=== PATIENT | male | born 1960 | race Caucasian/White ===

== ENCOUNTER 2021-02-15 03:01 | Inpatient (IN) | payer OTHER ==
[~2021-02-15] VITALS: Ht 177.8 cm; Wt 117.9 kg
--- NOTE | ~2021-02-15 | EMS ---
[address] [address] EMS Patient Care Report Name: EDIL RODRÍGUEZ Room #: 355-P ADM IN M.R.#: [id number] Admission: 02/15/21 Attend Phys: Argelia Mcnulty MD Discharge: Date of : 58 Report #: [id number] THIS REPORT FOR: //name// Report Transmitted: 02/17/2021 15:08 EMS Care Summary [place], [place]/[facility] Incident [id number] @ 02/15/2021 02:36 Incident Location [address], [place] [address] Patient EDIL RODRÍGUEZ Male, 60 Years 1960 Patient Address [address] [address] Patient History None Reported, Patient Allergies No known allergies, Patient Medications None Reported, Chief Complaint SOA Disposition Transported No Lights/[place] Dispatch Reason Sick Person Transported To [facility] Narrative M41 DISPATCHED TO [facility]. [facility] AND WAS MET OUTSIDE BY THE PT. THE PT STATES THAT HE HAS FELT SOA SINCE YESTERDAY. THE PT DENIES HAVING ANY PAIN. PT STATES THAT HE HAS NO [address] [address] EMS Patient Care Report Name: EDIL RODRÍGUEZ Room #: 355-P ADM IN M.R.#: [id number] Admission: 02/15/21 Attend Phys: Argelia Mcnulty MD Discharge: Date of : 58 Report #: [id number] OTHER COMPLAINTS OTHER THAN FEELING SOA. THE PT STATES THAT HE DOES NOT HAVE ANY MED HX, ALLERGIES, OR MEDS. PT WAS MOVED TO THE COT. VITALS OBTAINED. BGA OBTAINED. PT PLACED ON 4 LPM NC O2. PTS O2 SATURATIONS IMPROVED. M[address] [facility]. EN ROUTE PT REMAINED STABLE. REPORT GIVEN TO RN [facility], SIGNATURES OBTAINED. TRANSFER OF CARE TOOK PLACE. M41 IN SERVICE. MATEUS WATSON [employer]PER[employer] [facility] Initial Vitals @02:49P: 104,BP: 141/86, @02:43P: 105,BP: 158/103,CO: 4,SpO2: 91, @02:41P: 109,R: 24,BP: 174/116,Pain: 0/10,GCS: 15,Glucose: 123,CO: 3,SpO2: 91,Revised Trauma: 12, @02:48P: 103,R: 24,BP: 74/33,Pain: 0/10,GCS: 15,CO: 7,SpO2: 96,Revised Trauma: 10, Assessments @02:39MENTAL:Time Oriented,Event Oriented,Place Oriented,Person Oriented,SKIN:HEENT:Neck/Airway: No Abnormalities,LUNG SOUNDS:General: No Abnormalities,ABDOMEN:General: No Abnormalities,PELVIS//GI:No Abnormalities,EXTREMITIES:Capillary Refill: Right Upper: < 2 Sec,Left Arm: No Abnormalities,Right Arm: No Abnormalities,Left Leg: No Abnormalities,Right Leg: No Abnormalities,PULSE:Radial: 2+ Normal,NEURO:No Abnormalities, Impression Shortness of breath Procedures @02:39ALS AssessmentResponse: UnchangedSucceeded Timeline 02:31,Call Received 02:31,Dispatch Notified 02:36,Dispatched 02:37,En Route 02:38,On Scene [facility] [address] [place] [address] EMS Patient Care Report Name: EDIL RODRÍGUEZ Room #: 355-P ADM IN M.R.#: [id number] Admission: 02/15/21 Attend Phys: Argelia Mcnulty MD Discharge: Date of : 58 Report #: [id number] 02:39,At Patient 02:39,ALS Assessment,Response: UnchangedSucceeded, 02:41,BP: 174/116 M,PULSE: 109,RR: 24 R,SPO2: 91 Ox,ETCO2: ,B,PAIN: 0,GCS: 15, 02:43,BP: 158/103 M,PULSE: 105,RR: R,SPO2: 91 Ox,ETCO2: ,BG: ,PAIN: ,GCS: , 02:46,Depart Scene 02:48,BP: 74/33 M,PULSE: 103,RR: 24 R,SPO2: 96 Ox,ETCO2: ,BG: ,PAIN: 0,GCS: 15, 02:49,BP: 141/86 M,PULSE: 104,RR: R,SPO2: Ox,ETCO2: ,BG: ,PAIN: ,GCS: , 03:11,At Destination 03:11,Call Closed Disclaimer v1.1 Copyright 2020 [employer] This EMS Care Summary contains data elements from the applicable legal record (which may be displayed differently). It is designed to provide pertinent information for the following purposes: continuity of care, clinical quality, and state data reporting. The complete legal record is available to ED staff and administrators of the receiving hospital in ES's Patient Tracker. All data is provided "as is."
[2021-02-15 03:04] VITALS: BP 159/95
[2021-02-15 03:20] LABS: ABSOLUTE NEUTROPHILS 6.7 thou/uL (1.4-8.2); BASOPHILS 0.7 % (0.0-2.0); EOSINOPHILS 0.1 % (0.0-3.0); HEMATOCRIT 50.2 % (42.0-52.0); HEMOGLOBIN 17.3 gm/dL (14.0-18.0); LYMPHOCYTES 17.3 % (24.0-44.0); MCH 31.1 pg (26.0-34.0); MCHC 34.5 g/dL (28.0-37.0); MONOCYTES 19.1 % (1.0-8.0); PLATELET COUNT 223 thou/uL (150-400); POLYS 62.8 % (36.0-66.0); RBC 5.58 mil/uL (4.50-6.00); RDW 14.8 % (10.5-14.5); WBC 10.7 thou/uL (4.0-11.0)
[2021-02-15 03:46] LABS: ANION GAP 9 mmol/L (7-16); BUN 10 mg/dL (7-18); CALCIUM 8.4 mg/dL (8.5-10.1); CHLORIDE 99 mmol/L (98-107); CO2 26 mmol/L (21-32); CREATININE 1.1 mg/dL (0.7-1.3); GLUCOSE 156 mg/dL (74-106); SODIUM 134 mmol/L (136-145)
[2021-02-15 03:53] LABS: ALBUMIN 3.4 g/dL (3.4-5.0); SGOT 45 U/L (15-37); SGPT 76 U/L (30-65); TOTAL BILIRUBIN 0.4 mg/dL (0.2-1.0); TROPONIN-I <0.06 ng/mL (<0.06)
[2021-02-15 07:23] LABS: CHOLESTEROL 143 mg/dL (<200); HDL CHOLESTEROL 29 mg/dL (>40); LDL CHOLESTEROL 95 mg/dL (<100); TC:HDL 4.9 Ratio (Not establshd); TRIGLYCERIDE 95 mg/dL (<150); VLDL 19 mg/dL (<40)
[2021-02-15 07:45] LABS: URINE BILIRUBIN NEGATIVE (Negative); URINE BLOOD NEGATIVE (Negative); URINE CLARITY CLEAR; URINE COLOR YELLOW; URINE GLUCOSE-RANDOM* NEGATIVE (Negative); URINE KETONES NEGATIVE (Negative); URINE LEUKOCYTES-REFLEX NEGATIVE (Negative); URINE NITRITE-REFLEX NEGATIVE (Negative); URINE PROTEIN (DIPSTICK) TRACE (Negative); URINE SPECIFIC GRAVITY 1.015 (1.005-1.035)
--- NOTE | 2021-02-15 09:23 | EKG ---
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1960 Requested By: Adolph Gentile Order Number: [id number] MD: Fazal Watters Measurements Intervals [place] Rate: 100 P: 52 [place]: 175 QRS: -30 QRSD: 107 T: 83 QT: 351 QTc: 453 Interpretive Statements Sinus tachycardia Probable left atrial enlargement Inferior infarct, old Probable anteroseptal infarct, old No previous ECG available for comparison Electronically Signed On 02-15-2021 9:22:55 CDT by Fazal Watters [email or web address] <ELECTRONICALLY SIGNED> By: Fazal Watters MD, [facility] 02/15/21 0922 0324 [id number] Fazal Watters MD, FACC /EPI
[2021-02-15 15:00] VITALS: BP 151/90
[2021-02-15 17:24] VITALS: BP 155/69
[2021-02-15 19:10] VITALS: BP 175/103
[2021-02-15 23:49] VITALS: BP 152/99
[2021-02-16 01:05] LABS: GLYCOHEMOGLOBIN (HGB A1C) 9.5 % (4.8-5.6)
[2021-02-16 06:19] VITALS: BP 151/98
[2021-02-16 07:07] LABS: HEMATOCRIT 52.4 % (42.0-52.0); HEMOGLOBIN 17.7 gm/dL (14.0-18.0); MCHC 33.8 g/dL (28.0-37.0); MCV 91.8 fL (80.0-100.0); RBC 5.71 mil/uL (4.50-6.00); RDW 15.1 % (10.5-14.5)
[2021-02-16 07:19] LABS: CALCIUM 8.5 mg/dL (8.5-10.1); CREATININE 1.1 mg/dL (0.7-1.3); POTASSIUM 4.1 mmol/L (3.5-5.1); TOTAL BILIRUBIN 0.2 mg/dL (0.2-1.0); TOTAL PROTEIN 7.7 g/dL (6.4-8.2)
[2021-02-16 07:42] VITALS: BP 159/91
[2021-02-16 08:40] LABS: DIRECT BILIRUBIN < 0.1 mg/dL (<0.1-0.2); PHOSPHORUS 3.8 mg/dL (2.5-4.9)
[2021-02-16 15:32] VITALS: BP 148/99
[2021-02-16 19:49] VITALS: BP 139/76
[2021-02-17 04:02] VITALS: BP 139/78
[2021-02-17 04:37] LABS: ABSOLUTE NEUTROPHILS 9.4 thou/uL (1.4-8.2); BASOPHILS 0.3 % (0.0-2.0); HEMATOCRIT 45.8 % (42.0-52.0); LYMPHOCYTES 13.6 % (24.0-44.0); MCH 30.7 pg (26.0-34.0); MCHC 33.8 g/dL (28.0-37.0); MCV 90.6 fL (80.0-100.0); MONOCYTES 6.8 % (1.0-8.0); PLATELET COUNT 233 thou/uL (150-400); POLYS 79.3 % (36.0-66.0); RBC 5.05 mil/uL (4.50-6.00); RDW 14.6 % (10.5-14.5); WBC 11.8 thou/uL (4.0-11.0)
[2021-02-17 04:44] LABS: HEMOGLOBIN 15.5 gm/dL (14.0-18.0)
[2021-02-17 05:10] LABS: ALBUMIN 2.8 g/dL (3.4-5.0); ANION GAP 11 mmol/L (7-16); BUN 17 mg/dL (7-18); CALCIUM 7.6 mg/dL (8.5-10.1); CHLORIDE 104 mmol/L (98-107); CO2 24 mmol/L (21-32); DIRECT BILIRUBIN < 0.1 mg/dL (<0.1-0.2); GLUCOSE 249 mg/dL (74-106); PHOSPHORUS 2.9 mg/dL (2.5-4.9); POTASSIUM 3.9 mmol/L (3.5-5.1); SGOT 20 U/L (15-37); SGPT 43 U/L (30-65); SODIUM 139 mmol/L (136-145); TOTAL BILIRUBIN 0.2 mg/dL (0.2-1.0); TOTAL PROTEIN 6.7 g/dL (6.4-8.2)
[2021-02-17 07:13] VITALS: BP 168/117
--- NOTE | 2021-02-17 09:04 | HC ---
[facility] [place] [address] CONSULTATION Name: EDIL RODRÍGUEZ Room #: 355-P ADM IN M.R.#: [id number] Admission: 02/15/21 Attend Phys: Argelia Mcnulty MD Discharge: Date of : 58 Report #: [id number] THIS REPORT FOR: cc: FAM - Family physician unknown FAM - Family physician unknown Ibrahima Sanford MD ~ DATE OF SERVICE: 02/16/2021 INFECTIOUS DISEASE CONSULTATION ATTENDING PHYSICIAN: Dr. Mdeina. REASON FOR EVALUATION: COVID-19 infection, complicated by pneumonitis and respiratory failure. HISTORY OF PRESENT ILLNESS: Chart reviewed and the patient examined. The patient is a 60-year-old smoker who over the course of the last few days prior to admission had developed increasing dyspnea, had experienced some degree of cough with mild sputum production, is not clear of any fevers. He did have some abdominal discomfort and diminished p.o. intake. He was evaluated in the Emergency Room, found to have a positive COVID test. Glucose was 156. Chest x-ray did show some mild changes in right base. Urinalysis was otherwise unremarkable. Ultrasound shows cholelithiasis, question of gallbladder wall thickening, pericholecystic fluid. Procalcitonin was less than 0.05. He was given fluids, initiated on therapy with azithromycin, ceftriaxone, remdesivir as well as corticosteroids. ALLERGIES: None known. MEDICATIONS: Currently include albuterol, nicotine patch, famotidine, enoxaparin, guaifenesin, dexamethasone, ondansetron, remdesivir, azithromycin, ceftriaxone, and p.r.n. analgesics. PAST MEDICAL HISTORY: Denies any. SOCIAL HISTORY: Smokes cigarettes, 40-mrss-zwre history. Occasional ethanol, no illicit drug use. FAMILY HISTORY: Noncontributory. REVIEW OF SYSTEMS: Otherwise limited. PHYSICAL EXAMINATION: GENERAL: He appears somewhat chronically ill, undernourished. He is pleasant, cooperative, mild to moderate distress. VITAL SIGNS: Temperature 97.7, pulse 84, respirations 16, blood pressure [address] [address] CONSULTATION Name: EDIL RODRÍGUEZ Room #: 355-[facility] IN M.R.#: [id number] Admission: 02/15/21 Attend Phys: Argelia Mcnulty MD Discharge: Date of : 58 Report #: [id number] 159/91. SKIN: Warm, dry, no rashes. HEENT: Normocephalic. Extraocular muscles intact. Neck is supple. Nasal cannula in place, oxygen 2 liters per supplement. LUNGS: Few scattered coarse breath sounds, somewhat distant. HEART: Regular. I do not appreciate any murmur. ABDOMEN: Obese, somewhat firm, nontender. EXTREMITIES: No cyanosis. GENITOURINARY AND RECTAL: Deferred. LABORATORY DATA: Electrolytes most recently, sodium 137, potassium 4.1, chloride 102, bicarbonate 29, anion gap of 6, BUN and creatinine 15 and 1.1, glucose of 174. LFTs unremarkable. Albumin 3.0, total protein of 7.7. CBC: White count of 9.0, H and H 17.7 and 52.4, platelets of 234. Hemoglobin A1c of 9.5. Procalcitonin less than 0.05. CRP of 13.3. Ultrasound as noted above. Urinalysis unremarkable. Lipid profile: Cholesterol 143. Chest x-ray, question of developing pneumonitis. COVID testing was positive. CBC: White count 10.7, H and H 17.3 and 50.2 on admission, 223 platelets. ASSESSMENT AND PLAN: COVID-19 infection, complicated by pneumonitis, respiratory failure, likely new diagnosis of diabetes mellitus and he has had no medical care in a number of years. We will continue combination therapy. He notes he does feel better. We will add vitamins and ivermectin as well. Consider monoclonal antibody if would worsen. Continue oxygen support. Will need diabetic education. Supportive care. <ELECTRONICALLY SIGNED> By: Ibrahima Sanford MD 02/17/21 0904 0820 2135 Ibrahima Sanford MD /nt
[2021-02-17 15:34] VITALS: BP 201/127
[2021-02-17 16:30] VITALS: BP 193/111
[2021-02-17 19:57] VITALS: BP 181/107
[2021-02-18] VITALS (7 sets, daily range): BP systolic 148–186; BP diastolic 89–119
[2021-02-18 03:18] LABS: HEMATOCRIT 51.7 % (42.0-52.0); MCH 30.7 pg (26.0-34.0); MCV 90.4 fL (80.0-100.0); RBC 5.72 mil/uL (4.50-6.00); RDW 14.9 % (10.5-14.5); WBC 10.3 thou/uL (4.0-11.0)
[2021-02-18 03:29] LABS: ALBUMIN 3.5 g/dL (3.4-5.0); CALCIUM 8.7 mg/dL (8.5-10.1); CREATININE 0.9 mg/dL (0.7-1.3); DIRECT BILIRUBIN 0.2 mg/dL (<0.1-0.2); HEMOGLOBIN 17.6 gm/dL (14.0-18.0); PHOSPHORUS 2.8 mg/dL (2.5-4.9); POTASSIUM 3.5 mmol/L (3.5-5.1); TOTAL BILIRUBIN 0.5 mg/dL (0.2-1.0)
[2021-02-18 15:08] LABS: HAV IgM AB (ANTI-HAV IgM) Negative (Negative); HEPATITIS B SURFACE AG Negative (Negative); HEPATITIS C VIRUS AB >11.0 (0.0-0.9)
[2021-02-19 03:20] LABS: ALBUMIN 3.5 g/dL (3.4-5.0); CALCIUM 8.5 mg/dL (8.5-10.1); DIRECT BILIRUBIN 0.2 mg/dL (<0.1-0.2); PHOSPHORUS 3.1 mg/dL (2.5-4.9); TOTAL BILIRUBIN 0.5 mg/dL (0.2-1.0); TOTAL PROTEIN 7.9 g/dL (6.4-8.2)
[2021-02-19 05:10] VITALS: BP 139/79
[2021-02-19 07:51] VITALS: BP 159/87
[2021-02-19] MEDS ORDERED: ELIQUIS2.5 MG PO (13:04)
[2021-02-19] MEDS ORDERED: VITAMIN D325 MC2 PO (13:04)
[2021-02-19] MEDS ORDERED: NORVASC10 MG PO (13:04)
[2021-02-19] MEDS ORDERED: LOPRESSOR50 PO (13:04)
[2021-02-19] MEDS ORDERED: MUCINEX600 MG PO (13:04)
[2021-02-19] MEDS ORDERED: PREDNISONE 10 M10 MG PO (13:04)
[2021-02-19] MEDS ORDERED: PEPCID20 MG PO (13:04)
[2021-02-19] MEDS ORDERED: ZINC SULFATE50 MG PO (13:04)
[2021-02-19] MEDS ORDERED: ACEROLA C500 MG PO (13:04)
[2021-02-19] MEDS ORDERED: VENTOLIN HFA 1818 GM INH (13:04)
[2021-02-19] MEDS ORDERED: CEFDINIR300 MG PO (13:04)
[2021-02-19 13:13] VITALS: BP 159/87
[2021-02-19] MEDS ORDERED: OTHER MISCELL (14:16)
[2021-02-19] MEDS ORDERED: ATIVAN0.5 M1 PO (14:16)
[2021-02-19] MEDS ORDERED: METFORMIN HCL500 M3 PO (14:16)
[2021-02-19] MEDS ORDERED: ASA81BEC PO (14:36)
[2021-02-19 15:52] VITALS: BP 159/87
== END 2021-02-19 15:43 | disposition home or self-care (01) | DRG 177 ==
LOC: ER 03:01 → 3W 05:45 → EROBS 05:45 → 3W 17:53
PROVIDERS: Hospitalist; Nurse Practitioner Family; Student in an Organized Health Care Education/Training Program; ADMIT Internal Medicine; ATTEND Internal Medicine
PROC: XW033E5 Introduction of Remdesivir Anti-infective into Peripheral Vein, Percutaneous Approach, New Technology Group 5 (ICD-10-PCS; principal; 2021-02-15)
DX: U07.1 COVID-19 (principal); J12.82 Pneumonia due to coronavirus disease 2019; J96.01 Acute respiratory failure with hypoxia; F17.210 Nicotine dependence, cigarettes, uncomplicated; J44.9 Chronic obstructive pulmonary disease, unspecified; E11.9 Type 2 diabetes mellitus without complications; E66.9 Obesity, unspecified; Z71.6 Tobacco abuse counseling; Z68.38 Body mass index [BMI] 38.0-38.9, adult
CPT/HCPCS: 10080; 10879

== ENCOUNTER 2021-05-14 06:27 | Inpatient (IN) | payer OTHER ==
[~2021-05-14] VITALS: Ht 177.8 cm; Wt 121.6 kg
--- NOTE | ~2021-05-14 | EMS ---
[place] [address] EMS Patient Care Report Name: EDIL RODRÍGUEZ Room #: 207-P ADM IN M.R.#: [id number] Admission: 05/14/21 Attend Phys: Annie Rush Discharge: Date of : 58 Report #: [id number] THIS REPORT FOR: //name// Report Transmitted: 05/18/2021 14:35 EMS Care Summary [place], [place]/[facility] Incident [id number] @ 05/14/2021 05:46 Incident Location [address] [place] [address] Patient VIRGIL GARCIA Male, 60 Years 1960 Patient Address [address] [place] [address] Patient History None Reported, Patient Allergies No known allergies, Patient Medications None Reported, Chief Complaint COUGH, FEVER, AND WEAKNESS Disposition Transported No Lights/[place] Dispatch Reason Breathing Problem Transported To [facility] Narrative UPON ARRIVAL WE FOUND OUR 60 YEAR OLD MALE PATIENT LAYING ON A COUCH IN THE FRONT ROOM OF A RESIDENCE COMPLAINING OF A COUGH, FEVER, CHILLS, AND WEAKNESS X 2 DAYS. THE PATIENT STATES THAT HE HAS NOT RECEIVED A COVID 19 VACCINE, BUT HE DENIES ANY KNOWN COVID 19 EXPOSURE. THE PATIENT REQUESTS TRANSPORT TO [facility] [place] [address] EMS Patient Care Report Name: EDIL RODRÍGUEZ Room #: 207-P ADM IN M.R.#: [id number] Admission: 05/14/21 Attend Phys: Annie Rush Discharge: Date of : 58 Report #: [id number] EVALUATION. Initial Vitals @05:55P: 130,R: 30,BP: 186/112,Pain: 0/10,GCS: 15,Temp: 102.3F,SpO2: 87,Revised Trauma: 11,AL Suspected: false @06:16P: 130,R: 24,BP: 180/100,Pain: 0/10,GCS: 15,SpO2: 90,Revised Trauma: 12, Assessments @05:52MENTAL:Time Oriented,Event Oriented,Place Oriented,Person Oriented,SKIN:Hot,HEENT:Eyes: Left Pupil: 4-mm,Eyes: Right Pupil: 4-mm,Head/Face: No Abnormalities,Neck/Airway: No Abnormalities,LUNG SOUNDS:General: No Abnormalities,ABDOMEN:General: No Abnormalities,PELVIS//GI:Incontinence,EXTREMITIES:Left Arm: No Abnormalities,Right Arm: No Abnormalities,Left Leg: No Abnormalities,Right Leg: No Abnormalities,PULSE:Radial: 2+ Normal,NEURO:No Abnormalities, Impression Cough Procedures @05:52 ALS Assessment Response: UnchangedSucceeded @05:54 Oxygen FlowRate: 3 Device: Nasal Cannula (NC) Response: UnchangedSucceeded @05:55 3-Lead ECG Response: UnchangedSucceeded Timeline 05:45,Call Received 05:45,Dispatch Notified 05:46,Dispatched 05:48,En Route 05:51,On Scene 05:52,At Patient 05:52,ALS Assessment,Response: UnchangedSucceeded, 05:54,Oxygen FlowRate: 3 Device: Nasal Cannula (NC) Response: UnchangedSucceeded, 05:55,3-Lead ECG,Response: UnchangedSucceeded, 05:55,BP: 186/112 M,PULSE: 130,RR: 30 R,SPO2: 87 Ox,ETCO2: ,BG: ,PAIN: 0,GCS: 15, 05:58,Depart Scene 06:15,At Destination 06:16,BP: 180/100 M,PULSE: 130,RR: 24 R,SPO2: 90 Ox,ETCO2: ,BG: ,PAIN: 0,GCS: 15, 06:35,Call Closed Disclaimer [facility] [address] [place] [address] EMS Patient Care Report Name: EDIL RODRÍGUEZ Room #: 207-P ADM IN M.R.#: [id number] Admission: 05/14/21 Attend Phys: Annie uRsh Discharge: Date of : 58 Report #: [id number] v1.1 Copyright 2020 [employer] This EMS Care Summary contains data elements from the applicable legal record (which may be displayed differently). It is designed to provide pertinent information for the following purposes: continuity of care, clinical quality, and state data reporting. The complete legal record is available to ED staff and administrators of the receiving hospital in [employer]'s Patient Tracker. All data is provided "as is."
[~2021-05-14 06:27] MED LIST: ACEROLA C500 MG PO; ASA81BEC PO; ATIVAN0.5 M1 PO; CEFDINIR300 MG PO; ELIQUIS2.5 MG PO; LOPRESSOR50 PO; METFORMIN HCL500 M3 PO; MUCINEX600 MG PO; NORVASC10 MG PO; OTHER MISCELL; PEPCID20 MG PO; PREDNISONE 10 M10 MG PO; VENTOLIN HFA 1818 GM INH; VITAMIN D325 MC2 PO; ZINC SULFATE50 MG PO
[2021-05-14 06:29] VITALS: BP 193/112
[2021-05-14 06:48] LABS: HEMATOCRIT 51.9 % (42.0-52.0); HEMOGLOBIN 17.6 gm/dL (14.0-18.0); MCH 30.4 pg (26.0-34.0); MCHC 33.9 g/dL (28.0-37.0); MCV 89.7 fL (80.0-100.0); PLATELET COUNT 293 thou/uL (150-400); RBC 5.78 mil/uL (4.50-6.00); RDW 14.2 % (10.5-14.5); WBC 35.8 thou/uL (4.0-11.0)
[2021-05-14 07:08] LABS: CALCIUM 9.1 mg/dL (8.5-10.1); CREATININE 1.4 mg/dL (0.7-1.3)
[2021-05-14 07:13] LABS: BE(vivo) 3.5 mmol/L (-2 to +3); PCO2 37.7 mmHg (35.0-45.0); pH 7.473 (7.360-7.450); sO2 90.6 % (92.0-98.0)
[2021-05-14 07:14] LABS: PO2 54.9 mmHg (80.0-100.0)
[2021-05-14 07:14] LABS: POTASSIUM 4.8 mmol/L (3.5-5.1)
[2021-05-14 07:18] LABS: ALBUMIN 3.5 g/dL (3.4-5.0); TOTAL BILIRUBIN 0.8 mg/dL (0.2-1.0); TOTAL PROTEIN 8.7 g/dL (6.4-8.2)
[2021-05-14 07:58] LABS: URINE BILIRUBIN NEGATIVE (Negative); URINE BLOOD 1+ (Negative); URINE CLARITY CLEAR; URINE COLOR YELLOW; URINE GLUCOSE-RANDOM* 2+ (Negative); URINE KETONES NEGATIVE (Negative); URINE LEUKOCYTES-REFLEX NEGATIVE (Negative); URINE NITRITE-REFLEX NEGATIVE (Negative); URINE PROTEIN (DIPSTICK) 2+ (Negative); URINE SPECIFIC GRAVITY 1.025 (1.005-1.035)
[2021-05-14 08:21] LABS: CASTS None Seen /LPF (None Seen); SQUAMOUS 0-3 Few /LPF (0-3)
[2021-05-14 08:22] LABS: BACTERIA-REFLEX None Seen /HPF (None Seen); CRYSTALS None Seen /LPF (None Seen); URINE RBC 1-2 Rare /HPF (NONE SEEN); URINE WBC-REFLEX 0-5 Rare /HPF (0-5)
[2021-05-14 09:41] VITALS: BP 159/96
[2021-05-14 09:58] LABS: ABSOLUTE NEUTROPHILS 31.9 thou/uL (1.4-8.2)
[2021-05-14 10:47] LABS: AMP/METHAMP POSITIVE (Negative); BARBITURATES Negative (Negative); BENZODIAZEPINES Negative (Negative); COCAINE Negative (Negative); METHADONE Negative (Negative); OPIATES Negative (Negative); PCP Negative (Negative)
[2021-05-14 10:47] LABS: WBC 33.6 thou/uL (4.0-11.0)
[2021-05-14 11:50] VITALS: BP 150/86
[2021-05-14 13:16] VITALS: BP 157/86
--- NOTE | 2021-05-14 15:46 | EKG ---
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1960 Requested By: Destiney Min Order Number: [id number] MD: Fazal Watters Measurements Intervals [place] Rate: 114 P: 32 [place]: 172 QRS: -11 QRSD: 109 T: 74 QT: 343 QTc: 473 Interpretive Statements Sinus tachycardia Borderline low voltage, extremity leads Abnormal R-wave progression, late transition Baseline wander in lead(s) II,aVR,aVF,V1,V2,V3,V4,V5,V6 Compared to ECG 02/15/2021 03:24:59 Myocardial infarct finding no longer present Electronically Signed On 05-14-2021 15:46:05 CDT by Fazal Watters [email or web address] <ELECTRONICALLY SIGNED> By: Fazal Watters MD, FACC 05/14/21 1546 Fazal Watters MD, [facility] /EPI
--- NOTE | 2021-05-14 16:52 | NUR ---
Received pt from ED pt does not want to answer question for admission and requests to be left alone. Critical labs called to the MD orders given, Pt is impulsive wanting to get out of bed and have some water. Informed pt he needs to be npo and to await MD orders. Pt is very unkeptand unhygenic. Awaiting for CT to casll back.
[2021-05-14 21:08] VITALS: BP 142/78
[2021-05-15 00:02] VITALS: BP 113/72
[2021-05-15 01:06] LABS: GLYCOHEMOGLOBIN (HGB A1C) 9.8 % (4.8-5.6)
[2021-05-15 04:51] VITALS: BP 125/94
[2021-05-15 06:22] LABS: HEMATOCRIT 44.9 % (42.0-52.0); MCH 30.7 pg (26.0-34.0); MCHC 34.2 g/dL (28.0-37.0); MCV 89.9 fL (80.0-100.0); RBC 4.99 mil/uL (4.50-6.00); RDW 14.4 % (10.5-14.5)
[2021-05-15 06:27] LABS: HEMOGLOBIN 15.3 gm/dL (14.0-18.0)
[2021-05-15 06:30] LABS: CALCIUM 8.2 mg/dL (8.5-10.1); CREATININE 1.1 mg/dL (0.7-1.3)
[2021-05-15 06:35] LABS: ALBUMIN 2.7 g/dL (3.4-5.0); MAGNESIUM 1.7 mg/dL (1.8-2.4); TOTAL BILIRUBIN 0.3 mg/dL (0.2-1.0); TOTAL PROTEIN 7.3 g/dL (6.4-8.2)
[2021-05-15 06:37] LABS: POTASSIUM 3.7 mmol/L (3.5-5.1)
[2021-05-15 07:00] VITALS: BP 128/81
--- NOTE | 2021-05-15 07:38 | NUR ---
Pt. has been more awake this morning. Oriented times three. He did have a restless night with wanting to go from bed to recliner chair every half hour. Pt. denies pain. Up with stand by to use the urinal. VSS. Currently up in recliner chair with chair alarm on.
--- NOTE | 2021-05-15 08:51 | HC ---
[facility] [place] [address] CONSULTATION Name: EDIL RODRÍGUEZ Room #: [facility] IN M.R.#: [id number] Admission: 05/14/21 Attend Phys: Annie Rush Discharge: Date of : 58 Report #: [id number] THIS REPORT FOR: cc: FAM - Family physician unknown FAM - Family physician unknown Ibrahima Sanford MD ~ DATE OF SERVICE: 05/14/2021 INFECTIOUS DISEASE CONSULTATION ATTENDING PHYSICIAN: Dr. Rush. REASON FOR EVALUATION: Sepsis, complicated by respiratory failure, lactic acidemia. HISTORY OF PRESENT ILLNESS: Chart reviewed. The patient was examined. This is a 60-year-old, known to myself, who was hospitalized in 02/2021 with COVID-19 infection, complicated by pneumonitis and respiratory failure. He presented to the emergency room with complaints of dyspnea and cough, noted 2-3 days prior. It is difficult to ascertain additional details from him. He is quite somnolent, who is disinclined to awake. Reportedly, he had not been taking any of his medicines. He does live alone. He continues to smoke. Coronavirus testing x2 was negative including a PCR. ABG showed a pH of 7.473, pCO2 of 37.7, pO2 of 54.9 on room air. Electrolytes: Sodium 131. His creatinine was borderline elevated at 1.4, glucose of 338. Elevation of hepatic transaminases to 105 and 52. Lactic acid 3.0, subsequently noted to be up to 4.1. Influenza antigen was tested and it was negative. Ultrasound noted cholelithiasis with mild gallbladder wall thickening, similar to previous testing. Chest x-ray showed no acute process. Procalcitonin of 2.72. D-dimer 0.65. Sed rate of 1. Urinalysis unremarkable. CT of the chest noted no evidence of pulmonary emboli. Initial CBC, white count of 35.8, hemoglobin 17.6 and hematocrit 51.9. Rapid strep was negative, empirically started on Zosyn. ALLERGIES: None known. CURRENT MEDICATIONS: Include enoxaparin, Zosyn, p.r.n. analgesics. PAST MEDICAL HISTORY: 1. Underlying COPD. 2. Diabetes mellitus. SOCIAL HISTORY: Smoker. 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 FAMILY HISTORY: Available in chart. [address] [address] CONSULTATION Name: EDIL RODRÍGUEZ Room #: [address] [place] [address] IN M.R.#: [id number] Admission: 05/14/21 Attend Phys: Annie Rush Discharge: Date of : 58 Report #: [id number] REVIEW OF SYSTEMS: Otherwise, review of systems is unobtainable. PHYSICAL EXAMINATION: GENERAL: He appears chronically ill. He is somnolent, difficult to arouse, moderate distress. VITAL SIGNS: Temperature 98.3; T-max 102.4, earlier today; pulse 108, down from 130s; respirations 22; blood pressure is 157/86. SKIN: Warm, dry, no rashes. HEENT: Normocephalic. Nasal cannula in place. NECK: Supple. LUNGS: Diminished breath sounds. ABDOMEN: Distended, right lateral decubitus position. There is no overt peritoneal signs. EXTREMITIES: Distal lower extremity edema. GENITOURINARY AND RECTAL: Deferred. LABORATORY DATA: Recent CBC: White count of 33.6, bands of 11. Lactic acid 4.1. Initial CBC: H and H 17.6 and 51.9, platelets of 293. Influenza antigen negative. IMAGING: As noted above. ASSESSMENT AND PLAN: Febrile illness, complicated by multiorgan dysfunction including respiratory failure, suspect due to significant compromised state with underlying chronic obstructive pulmonary disease, would be concerned about intraabdominal process versus septicemia. We will continue broad-spectrum therapy, adjusted for his renal insufficiency, add vancomycin. I would be concerned about gram-positive etiology, it is reasonable to check CT of the abdomen and pelvis to exclude a process, intra-abdominal including an enteritis. He remains tenuous at this point. Continue to monitor expectantly. <ELECTRONICALLY SIGNED> By: Ibrahima Sanford MD 05/15/21 0851 1327 05 Ibrahima Sanford MD /nt
[2021-05-15 12:38] VITALS: BP 131/69
--- NOTE | 2021-05-15 15:25 | NUR ---
PT ADMITTED RELATED TO RESP FAILURE, SEPSIS, COUGH. CM REVIEWED CHART AND SPOKE WITH CARE TEAM. CM MET WITH PT AT BEDSIDE THIS DAY. PT APPEARED TO BE A&O X4. CM ROLE INTRODUCED. PT INDICATED HE RESIDES IN A HOUSE WITH FRIENDS WITH 4-5 STEPS TO ENTER AND NONE HE USES INSIDE. 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 PT INDICATED NO OTHER CME OR HH HX. PT INDICATED HE HAS RESOURCES BUT HADN'T YET ESTABLISHED HIMSELF WITH A CLINIC OR PROVIDER FOR CARES IN THE COMMUNITY. PT HAD BEEN HERE WITH [facility] IN FEBRUARY. PT INDICATED HE PLANS TO RETURN HOME ONCE MEDICALLY STABLE. PT INDICATED HE DIDN'T THINK HE'D NEED ASSISTANCE WITH MEDS UPON DC. CARE TEAM INDICATED THAT THEY ANTICIPATE BEING HERE OVER THE WEEKEND. CM FOLLOWING REGARDING DC PLANNING.
[2021-05-15 17:25] VITALS: BP 140/89
[2021-05-15 19:49] VITALS: BP 153/80
[2021-05-16] VITALS (7 sets, daily range): BP systolic 112–184; BP diastolic 50–111
[2021-05-16 04:39] LABS: HEMATOCRIT 45.4 % (42.0-52.0); MCH 30.4 pg (26.0-34.0); MCHC 33.1 g/dL (28.0-37.0); MCV 91.8 fL (80.0-100.0); RBC 4.94 mil/uL (4.50-6.00); RDW 14.7 % (10.5-14.5); WBC 20.3 thou/uL (4.0-11.0)
[2021-05-16 04:46] LABS: ALBUMIN 2.7 g/dL (3.4-5.0); CREATININE 1.1 mg/dL (0.7-1.3); TOTAL BILIRUBIN 0.4 mg/dL (0.2-1.0); TOTAL PROTEIN 7.4 g/dL (6.4-8.2)
--- NOTE | 2021-05-16 06:14 | NUR ---
Pt. has had a restless night. Sounding off bed alarm and chair alarm frequently. Pt. has been going from bed to chair. He c/o pain to his left lower leg and ivp morphine given (see emar). Left lower leg is reddish pink and warm upon touch. Elevating extremity when possible. Bp elevated this am (see vs) and Giselle CRUZ called and notified. New order for metoprolol received. Pt. currently sitting up in recliner chair with bed alarm on. Running sinus rythmn on the monitor. Pt. is not always compliant with his oxygen.
--- NOTE | 2021-05-16 12:12 | NUR ---
PT ALERT AND ORIENTED X 4. PT RESTLESS AT BEGINNING OF SHIFT AND IMPULSIVELY MOVING FROM BED TO CHAIR WITHOUT CALLING FOR HELP. PT CONTINUOUSLY PULLS OFF 02, PT EDUCATED ABOUT NOT TAKING O2 OFF. PT STARTED FEELING CHEST PAIN APPROXIMATELY 10:45 AM, DR MELENDEZ AT BEDSIDE. GAVE PT NITRO PER DR CARDONA. PT EKG WNL PER DOCTOR. LABS DRAWN, WAITING FOR RESULTS WHEN TRANSFERRED TO .
--- NOTE | 2021-05-16 12:22 | NUR ---
REPORT RECEIVED FROM K[facility]A ON 4TH FLOOR. PT CAME TO UNIT VIA WHEEL CHAIR.
--- NOTE | 2021-05-16 18:38 | NUR ---
PT CAME FROM 4TH FLOOR WITH NEW COMPLAINT OF CHEST PAIN. PT DENIED ANY PAIN UPON ARRIVAL TO THIS UNIT. PT INITIALLY IMPULSIVE SITTING ON THE SIDE OF THE BED TO URINATE. PT AGREED TO HAVE A CONDOM CATH PLACED AND THEN SLEPT MOST OF THE AFTERNOON. NO BM TODAY, DECENT URINE OUTPUT.
[2021-05-17 00:52] LABS: HEMATOCRIT 45.6 % (42.0-52.0); HEMOGLOBIN 14.8 gm/dL (14.0-18.0); MCH 29.7 pg (26.0-34.0); MCHC 32.5 g/dL (28.0-37.0); MCV 91.4 fL (80.0-100.0); RBC 4.99 mil/uL (4.50-6.00); RDW 14.6 % (10.5-14.5); WBC 15.1 thou/uL (4.0-11.0)
[2021-05-17 00:58] LABS: ALBUMIN 2.5 g/dL (3.4-5.0); CALCIUM 8.2 mg/dL (8.5-10.1); CREATININE 1.4 mg/dL (0.7-1.3); PHOSPHORUS 2.9 mg/dL (2.6-4.7); POTASSIUM 3.5 mmol/L (3.5-5.1)
[2021-05-17 03:26] VITALS: BP 127/89
--- NOTE | 2021-05-17 05:29 | NUR ---
PT LYING IN BED. IMPULSIVE. CONDOM CATH IN PLACE. DENIES PAIN. RESTING COMFORTABLY. NO NEEDS VOICED. FREQUENT OBSERVATION.
[2021-05-17 07:40] VITALS: BP 130/82
[2021-05-17 11:37] VITALS: BP 118/72
[2021-05-17 16:21] VITALS: BP 130/87
--- NOTE | 2021-05-17 17:51 | NUR ---
PT HAD A GOOD SHIFT. VOICE HAS IMPROVED AND IS EASIER TO UNDERSTAND. PT STILL HAS SOME SLIGHT CONFUSION OTHERWISE PLEASANT. NO BM TODAY. DECENT URINE OUTPUT FROM CONDOM CATH. NO VISITORS TODAY.
[2021-05-17 19:55] VITALS: BP 134/74
[2021-05-18 04:37] VITALS: BP 155/94
--- NOTE | 2021-05-18 07:26 | EKG ---
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 05/18/21 0726 51 51 Fazal Watters MD, [facility] /EPI
[2021-05-18 07:55] VITALS: BP 164/98
--- NOTE | 2021-05-18 08:14 | NUR ---
PT LYING IN BED. CONDOM CATH REMOVED BY PT--ATTEMPTING TO USE URINAL. DENIES PAIN. FREQUENT OBSERVATION.
--- NOTE | 2021-05-18 10:31 | 2DMMODE ---
[facility] [place] [address] 2 D/M-MODE ECHOCARDIOGRAM Name: EDIL RODRÍGUEZ Room #: 207-P ADM IN M.R.#: [id number] Admission: 05/14/21 Attend Phys: Annie Rush Discharge: Date of : 58 Report #: [id number] THIS REPORT FOR: cc: FAM - Family physician unknown FAM - Family physician unknown Fazal Watters MD [facility] ~ APPROVED REPORT Study performed: 05/18/2021 09:33:07 EXAM: Comprehensive 2D, Doppler, and color-flow Echocardiogram Patient Location: Bedside Room #: 207 Status: routine BSA: 2.35 HR: 79 bpm BP: 164/98 mmHg Rhythm: NSR Other Information Study Quality: Fair Technically limited study due to COPD and morbid obesity.. Indications Sepsis, drug abuse, rule out enodocarditis. Hx: COPD, COVID (02/2021). 2D Dimensions RVDd: 34.89 mm IVSd: 13.40 (7-11mm) LVOT Diam: 23.65 (18-24mm) LVDd: 44.91 mm PWd: 11.62 (7-11mm) Ascending Ao: 38.59 (22-36mm) LVDs: 32.50 (25-40mm) Left Atrium: 35.68 (27-40mm) Aortic Root: 39.82 mm Volumes Left Atrial Volume (Systole) Single Plane 4CH: 38.06 mL Single Plane 2CH: 57.45 mL LA ESV Index: 22.00 mL/m2 Aortic Valve AoV Peak Rei.: 1.88 m/s [facility] [address] [place] [address] 2 D/M-MODE ECHOCARDIOGRAM Name: EDIL RODRÍGUEZ Room #: 207-P [facility] IN .R.#: [id number] Admission: 05/14/21 Attend Phys: Annie Jay Discharge: Date of : 58 Report #: [id number] AO Peak Gr.: 14.13 mmHg LVOT Max P.91 mmHg LVOT Max V: 0.99 m/s SASHA Vmax: 2.31 cm2 Mitral Valve E/A Ratio: 1.2 MV Decel. Time: 202.32 ms MV E Max Rei.: 1.15 m/s MV A Rei.: 0.99 m/s MV PHT: 58.67 ms IVRT: 65.74 ms Pulmonary Valve PV Peak Rei.: 1.02 m/s PV Peak Gr.: 4.13 mmHg Pulmonary Vein P Vein S: 0.62 m/s P Vein D: 0.59 m/s P Vein S/D Ratio: 1.05 Tricuspid Valve TR Peak Rei.: 2.79 m/s RAP Estimate: 5.00 mmHg TR Peak Gr.: 31.20 mmHg PA Pressure: 36.00 mmHg Left Ventricle The left ventricle is normal size. There is normal LV segmental wall motion. Mild concentric left ventricular hypertrophy. Left ventricular systolic function is normal. LVEF is 55-60%. Moderate diastolic dysfunction is present. Right Ventricle The right ventricle is normal size. The right ventricular systolic function is normal. Atria The left atrium size is normal. The right atrium size is normal. Aortic Valve The aortic valve leaflets are poorly visualized; calcification noted. No aortic regurgitation is present. There is no aortic valvular stenosis. Mitral Valve The mitral valve is normal in structure. Mild mitral annular [facility] [address] [place] [address] 2 D/M-MODE ECHOCARDIOGRAM Name: EDIL RODRÍGUEZ Room #: 207-P [facility] IN M.R.#: [id number] Admission: 05/14/21 Attend Phys: Annie Jay Discharge: Date of : 58 Report #: [id number] calcification. There is no mitral valve regurgitation noted. Tricuspid Valve The tricuspid valve is normal in structure. Trace tricuspid regurgitation. Estimated PAP is 31mmHg. Pulmonic Valve Pulmonic valve is poorly visualized. Great Vessels The sinuses are mildly dilated at 4.0cm. Ascending aorta is mildly dilated at 3.9cm. IVC is normal in size and collapses >50% with inspiration. Pericardium There is no pericardial effusion. <Conclusion> Normal left ventricle size with mild concentric hypertrophy Ejection fraction 55% Normal right ventricle size/function Normal atrial size Normal aortic valve structure and function Mild mitral annular calcification No evidence of mitral valve insufficiency Trace tricuspid valve insufficiency Pulmonary systolic pressure estimated 31 mmHg No pericardial effusion Aortic root mildly dilated 4.0 cm Ascending aorta mildly dilated 3.9 cm <ELECTRONICALLY SIGNED> By: Fazal Watters MD, FACC 05/18/21 103 29 29 Fazal Watters MD, FACC /INF
[2021-05-18 11:35] VITALS: BP 170/100
--- NOTE | 2021-05-18 13:49 | NUR ---
TOOK OVER CARE FOR THIS PATIENT AT 0700. PATIENT SLEEPING IN BED DURING REPORT. PATIENT SPEAK IS DIFFICULT TO COMPREHEND. PATIENT IMPULSIVE AT TIMES. PATIENT CALLED OUT THIS AFTERNOON STATING THAT HE WAS GOING TO LEAVE AMA. PATIENT'S DAUGHTER PRESENT DURING THIS DISCUSSION; EDUCATED PATIENT ON IMPORTANCE OF REMAINING IN THE HOSPITAL AT THIS TIME; DR. MELENDEZ WOULD LIKE TO HAVE PATIENT COMPLETE STRESS TEST IN THE MORNING. INFORMED DR. MELENDEZ ABOUT PATIENT'S INTENT TO LEAVE; DR. MELENDEZ STATED HE WAS FINE WITH PATIENT LEAVING IF HE DID DECIDE TO GO. PATIENT AGREEABLE TO STAY ONE MORE DAY TO OBTAIN STRESS TEST. ADMINISTERED PRN ANXIETY MEDICATION. FALL PRECAUTIONS IN PLACE AND CALL LIGHT WITHIN REACH. PATIENT SITTING IN CHAIR AT THIS TIME.
[2021-05-18 15:50] VITALS: BP 175/102
[2021-05-18 19:28] VITALS: BP 157/84
[2021-05-19 03:36] VITALS: BP 146/82
[2021-05-19 05:34] LABS: ALBUMIN 2.6 g/dL (3.4-5.0); CALCIUM 8.5 mg/dL (8.5-10.1); PHOSPHORUS 3.4 mg/dL (2.5-4.9); POTASSIUM 3.7 mmol/L (3.5-5.1)
[2021-05-19 05:48] LABS: HEMATOCRIT 44.2 % (42.0-52.0); HEMOGLOBIN 14.9 gm/dL (14.0-18.0); MCH 30.8 pg (26.0-34.0); MCHC 33.8 g/dL (28.0-37.0); MCV 91.1 fL (80.0-100.0); RBC 4.85 mil/uL (4.50-6.00); RDW 14.6 % (10.5-14.5); WBC 11.5 thou/uL (4.0-11.0)
--- NOTE | 2021-05-19 06:06 | NUR ---
ASSUMED CARE OF PT AT 1900. PT IS AOX4 60M IRRITABLE AND NONCOMPLIANT SEPSIS/RESPIRATORY PT. THROUGHOUT THE NIGHT PT RESTED IN ROOM. PT IS NONCOMPLIANT, IRRITABE, AND REFUSES EDUCATION. ONLY ALLOWED TELE TO BE ON HIM FOR ABOUT 30 MINUTES TONIGHT, CALLED [facility] TO ASK FOR M/SURG STATUS BUT WILL JUST CHART CONTINUAL REFUSAL. PT ALSO REFUSES TO CALL WHEN TRANSFERRING FROM BED TO THE CHAIR. SPENT A FEW HOURS IN CHAIR PRIOR TO RESTING IN BED THROUGHOUT THE MORNING. PLAN IS TO HAVE STRESS TEST IN AM, WITH POSSIBLE DISCHARGE FOLLOWING. XANAX GIVEN FOR PROBABLE WITHDRAWAL, PT FREQUENTLY RUDE AND REFUSING STAFF INSTRUCTION. RESTING IN BED NOW, WILL CONT TO MONITOR.
[2021-05-19 08:00] VITALS: BP 133/99
[2021-05-19] MEDS ORDERED: AMOX TR-K CLV1 EAC4 PO (08:53)
[2021-05-19] MEDS ORDERED: GLYBURIDE 5 MG T5 M1 PO (08:54)
[2021-05-19] MEDS ORDERED: CARVEDILOL12.5 MG PO (08:54)
[2021-05-19 09:29] VITALS: BP 133/99
--- NOTE | 2021-05-19 10:22 | NUR ---
PT DC HOME TODAY. AFEBRILE, ADEQUATE UOP, NO BM, FAIR APPETITE.
== END 2021-05-19 10:00 | disposition home or self-care (01) | DRG 871 ==
LOC: ER 06:27 → EROBS 10:07 → 4W 12:37 → 2N 05-16 12:07
PROVIDERS: Emergency Medicine; ADMIT Hospitalist; ATTEND Hospitalist
DX: A41.9 Sepsis, unspecified organism (principal); J96.01 Acute respiratory failure with hypoxia; U07.1 COVID-19; J12.82 Pneumonia due to coronavirus disease 2019; N17.9 Acute kidney failure, unspecified; G93.40 Encephalopathy, unspecified; L03.115 Cellulitis of right lower limb; K80.10 Calculus of gallbladder with chronic cholecystitis without obstruction; R65.20 Severe sepsis without septic shock; E66.9 Obesity, unspecified; E11.9 Type 2 diabetes mellitus without complications; I50.9 Heart failure, unspecified; I11.0 Hypertensive heart disease with heart failure; G47.33 Obstructive sleep apnea (adult) (pediatric); K75.9 Inflammatory liver disease, unspecified; F15.10 Other stimulant abuse, uncomplicated; Z68.38 Body mass index [BMI] 38.0-38.9, adult; Z71.6 Tobacco abuse counseling
CPT/HCPCS: 10045; 10081